=== PATIENT | male | born 1990 ===

== ENCOUNTER 2025-01-27 08:13 | Emergency (ER) | payer BC ==
[2025-01-27] MEDS: Lidocaine 2% Viscous Solution 15 ML UD PO ONE (08:52)
== END 2025-01-27 08:57 | disposition home or self-care (01) ==
LOC: LL.ED 08:13
DX: R09.A2 Foreign body sensation, throat (principal); Z79.899 Other long term (current) drug therapy; Z88.8 Allergy status to other drugs, medicaments and biological substances
CPT/HCPCS: 99283; J3490; A9270-GY